=== PATIENT | male | born 1940 | race Caucasian/White ===

== ENCOUNTER → 2016-11-30 | Outpatient (CLI) | payer OTHER ==
--- NOTE | 2016-11-30 16:59 | DX ---
Chest, PA and Lateral History: Cough, possible pneumonia, influenza A, J10.1, J18.9 Comparison: September 02, 2014 Findings: The heart remains enlarged. The pulmonary vascularity is not plethoric. Mildly prominent barrie ng volumes and perihilar bronchial wall thickening are again present and consistent with chronic or r ecurrent airways disease. Patchy density much of which is pleurally based, in the left lower lung may represent pleural scarring from the patient's open heart surgery or a chronic or recurrent pleural e ffusion. It is difficult to exclude underlying infiltrate. Median sternotomy wires and 2 valve replac ements remain in place. Impression: Impossible to exclude left lower lobe pneumonia. If clinically indicated noncontrast CT w ould be helpful. Please see above.
== END ==
LOC: CIMAGING 11:43
PROVIDERS: ATTEND Family Medicine
DX: R91.8 Other nonspecific abnormal finding of lung field (principal); Z95.2 Presence of prosthetic heart valve
CPT/HCPCS: 71020-PO

== ENCOUNTER 2018-04-24 11:23 | Observation (INO) | payer OTHER ==
--- NOTE | 2018-04-23 16:02 | PDHPUP ---
History & Physical Update H&P update statement: This history and physical update is based on an assessment of the patient which was completed after admission or registration (within 24 hours), but prior to the surgery/procedure. H&P update: H&P reviewed & patient examined, no change in patient's condition since H&P completed
[2018-04-24] MEDS ORDERED: LR 1,000 ML IV ONE (12:11)
[2018-04-24] MEDS ORDERED: LIDO/EPI 1% **for epidural** 30 ML SDV ONE (12:26)
[2018-04-24] MEDS ORDERED: BACITRACIN ZINC 14.2 GM OINTTUBE TP ONE (12:26)
[2018-04-24] MEDS ORDERED: OXYMETAZOLINE 30 ML NASAL SPRAY ONE (12:26)
[2018-04-24 12:28] LABS: INR 1.77 (0.83-1.16); PROTIME(PATIENT) 20.7 SEC (12.0-15.0)
[2018-04-24] MEDS ORDERED: DEXAMETHASONE 4 MG/ML VIAL IVP ONE (12:31)
[2018-04-24] MEDS ORDERED: LIDOCAINE 1% 300 MG/30 ML SDV ONE (12:35)
[2018-04-24] MEDS ORDERED: EPINEPHrine 1 MG/ML INJ ONE (12:35)
--- NOTE | 2018-04-24 12:42 | PDANEPAE ---
ANE History of Present Illness bilateral epistaxis s/f bilateral nasal cautery ANE Past Medical History - Cardiovascular History Hx Hypertension: No Hx Arrhythmias: Yes Hx Chest Pain: No Hx Coronary Artery / Peripheral Vascular Disease: Yes Hx CHF / Valvular Disease: Yes Hx Palpitations: Yes Cardiovascular History Comment: PERSISTANT A-FIB, CAD, CHF, CARDIOMYOPATHY, TRICUSPID REGURITATION, AORTIC VALVE REGURITATION, R VENT DYSFUNCTION, EJ FRACTION - 45 - 50% - Pulmonary History Hx COPD: No Hx Asthma/Reactive Airway Disease: No Hx Recent Upper Respiratory Infection: No Hx Oxygen in Use at Home: No Hx Sleep Apnea: No Pulmonary History Comment: PULMONARY HYPERTENSION - Neurologic History Hx Cerebrovascular Accident: Yes Hx Seizures: No Hx Dementia: No Neurologic History Comment: CVA DURING CABG - Endocrine History Hx Diabetes: No Endocrine History Comment: HYPOTHYROID - Renal History Hx Renal Disorders: No - Liver History Hx Hepatic Disorders: No - Neurological & Psychiatric Hx Hx Neurological and Psychiatric Disorders: No - Congenital Disorder History Hx Congenital Disorders: No - GI History Hx Gastrointestinal Disorders: No - Chronic Pain History Chronic Pain: No - Surgical History Prior Surgeries: CABG, 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, HERNIA REPAIR A CHILD, BILAT KNEE REPLACEMENT ANE Review of Systems Review of Systems: - Exercise capacity METS (RN): 3 METS ANE Patient History - Allergies Allergies/Adverse Reactions: No Known Allergies Allergy (Verified 10/02/16 16:56) - Home Medications Home medications: home medication list seen and reviewed Home Medications: Lasix 20 MG (*) 20 mg PO DAILY 04/24/18 [Last Taken 04/23/18] Potassium Chloride 10 mcg PO EVERY OTHER DAY 04/24/18 [Last Taken 04/23/18] Synthroid 100 mcg (*) 100 mcg PO DAILY 04/24/18 [Last Taken 04/23/18] Warfarin Sodium 1 mg pe PO 04/24/18 [Last Taken 04/20/18] Warfarin Sodium [Coumadin 5MG (*)] 7 mg PO 04/24/18 [Last Taken 04/20/18] - NPO status NPO Status: no food or drink >8 hours - Anes Hx Anes Hx: no prior problems - Smoking Hx Smoking Status: Never smoked - Alcohol Use Alcohol Use: Occasionally - Family Anes Hx Family Anes Hx: none Family Hx Anesthesia Complications: na ANE Labs/Vital Signs - Vital Signs Height: 175.26 cm Weight: 74.843 kg ANE Physical Exam - Airway Mallampati Score: Class 2 Mouth exam: normal dental/mouth exam - Pulmonary Pulmonary: no respiratory distress - Cardiovascular Cardiovascular: regular rate and rhythym - ASA Status ASA Status: III ANE Anesthesia Plan Anesthesia Plan: general endotracheal anesthesia
[2018-04-24] MEDS ORDERED: DEXAMETHASONE 4 MG/ML VIAL ONE ×2 (12:53)
[2018-04-24] MEDS ORDERED: LIDOCAINE 2% 100 MG/5 ML SYR ONE (12:53)
[2018-04-24] MEDS ORDERED: REMIFENTANIL HCL 1 MG VIAL ONE (12:53)
[2018-04-24] MEDS ORDERED: PROPOFOL/EMULSION 500 MG/50 ML BOTTLE IV ONE (12:53)
[2018-04-24] MEDS ORDERED: fentaNYL 100 MCG/2 ML INJ ONE (12:53)
[2018-04-24] MEDS ORDERED: ONDANSETRON 4 MG/2 ML VIAL ONE (12:53)
[2018-04-24] MEDS ORDERED: PHENYLEPHRINE HCL 100 MCG/ML SYR ONE (12:58)
[2018-04-24] MEDS ORDERED: ONDANSETRON 4 MG/2 ML VIAL IVP PRN ×2 (13:46→14:07)
[2018-04-24] MEDS ORDERED: OXYCODONE/APAP 5/325 TAB PO PRN (13:46)
--- NOTE | 2018-04-24 13:46 | POSTOPPROG ---
Post Op Note Date of Operation: 04/24/18 Surgeon: Cassidy Keen Anesthesiologist: Corby Anesthesia: GET(General Endotracheal) Pre-op Diagnosis: recurrent left sided epistaxis Post-op Diagnosis: same Procedure: EUA with endoscopic cauterizatiuon of nasal bleeder, and insertion of left Inf/Abcess present in the surg proc area at time of surgery?: No Depth: Superfical (Skin SQ) EBL: 50-100 Total fluids administered: 800 Complications: none Specimen(s): none
[2018-04-24] MEDS ORDERED: D5W 1/2 NS W/ 20 KCl/L 1,000 ML IV SCH (14:00)
[2018-04-24] MEDS ORDERED: LR 500 ML IV PRN (14:07)
[2018-04-24] MEDS ORDERED: HYDROCODONE/APAP 5/325 TAB PO PRN (14:07)
[2018-04-24] MEDS ORDERED: fentaNYL 100 MCG/2 ML INJ IVP PRN (14:07)
[2018-04-24] MEDS ORDERED: oxyCODONE IR 5 MG TAB PO PRN (14:07)
[2018-04-24] MEDS ORDERED: NALOXONE HCL 0.4 MG/ML INJ IVP PRN (14:07)
[2018-04-24] MEDS ORDERED: PROMETHAZINE HCL 25 MG/ML INJ IVP PRN (14:07)
[2018-04-24] MEDS ORDERED: DEXAMETHASONE 4 MG/ML VIAL IVP PRN (14:07)
[2018-04-24] MEDS ORDERED: ALBUTEROL 3 ML DEYVIAL IH PRN (14:07)
[2018-04-24] MEDS ORDERED: METOCLOPRAMIDE 10 MG/2 ML VIAL IVP PRN (14:07)
[2018-04-24] MEDS ORDERED: ACETAMINOPHEN 500 MG TAB PO PRN (14:07)
[2018-04-24] MEDS ORDERED: PHENYLEPHRINE HCL 100 MCG/ML SYR IVP PRN (14:07)
[2018-04-24] MEDS ORDERED: MEPERIDINE 25 MG/0.5 ML AMP IVP PRN (14:07)
[2018-04-24] MEDS ORDERED: LABETALOL HCL 5 MG/ML 20 ML MDV ONE (14:18)
[2018-04-24] MEDS ORDERED: LABETALOL HCL 5 MG/ML 20 ML MDV IVP PRN (14:19)
--- NOTE | 2018-04-24 14:27 | GOP ---
[f rep st] OPERATIVE REPORT DATE OF OPERATION: 04/24/2018 SURGEON: Tim Keen MD ANESTHESIA: General endotracheal. PREOPERATIVE DIAGNOSIS: Recurrent epistaxis. POSTOPERATIVE DIAGNOSIS: Recurrent epistaxis. PROCEDURE PERFORMED: Examination under anesthesia with nasal endoscopic control of nasal bleeding an d placement of left nasal packing. FINDINGS: No gross bleeding seen, oozing from the septal deformity low and left floor of nose extens ively treated with bipolar electrocautery. In addition, left sidewall of the nose thoroughly cauteri zed as well as Surgicel packing then used to fill the left nasal airway and provide firm pressure ove rlying the bleeding site. ESTIMATED BLOOD LOSS: 10 mL. DESCRIPTION OF PROCEDURE: The patient was placed on the operative table in supine position. After i nduction of adequate general endotracheal anesthesia, sterile draping was performed. Sterile eye pad s and head drape were placed. The patient's previously placed balloon packs were removed from each s mckinley of the nose. At this point, pledgets soaked in Afrin nasal spray were inserted into the right an d left side of the nose. The nose was then examined. No area of bleeding was noted. It was noted t he patient had significant angulation of his nasal septum on the left. Endoscopic visualization of t he right nasal airway was performed. No evidence of fresh or old blood was noted. Old blood was not ed to be present in the posterior pharynx. The left side of the nose was then thoroughly examined. Oozing was noted along the septal deformity along the floor of the nose. The septal deformity almost abutted the sidewall of the nose. The area surrounding the septal deformity was noted to have press ure using suctioning and the middle meatus was unremarkable. At this point cauterization of the enti re septal spur on the left was performed using the bipolar electrocautery. The area was extensively cauterized. The nasal sidewall was then cauterized so that the sphenoethmoid artery would be cauteri zed as well. At this point, Surgicel was cut into strips and inserted firmly and packed firmly in th e left side of the nose. Once this was completed, the procedure was terminated. The patient was preet kened and transferred to the postanesthesia recovery area in stable condition. FLUID REPLACEMENT: 1000 mL. COMPLICATIONS: None. /[id number]/MODL
[2018-04-24] MEDS ORDERED: ACETAMINOPHEN 325 MG TAB PO PRN (16:33)
--- NOTE | 2018-04-24 16:44 | SOAPPROG ---
SOAP Progress Note Assessment/Plan: Assessment: 77 year old male s/p endoscopic control of epistaxis. No bleeding. Doing well. Tylenol ordered. Regular diet started. - Will discharge tomorrow 04/24/18 16:43 Subjective: S/p endoscopic evaluation and control of epistaxis. Doing well. Mild pain. No bleeding. Objective: Vital Signs Temp Pulse Resp BP Pulse Ox 36.9 C 76 18 159/80 H 97 04/24/18 15:18 04/24/18 15:18 04/24/18 15:18 04/24/18 15:18 04/24/18 15:18 04/23/18 04/24/18 04/25/18 05:59 05:59 05:59 Intake Total 850 Balance 850 PT 20.7 SEC (12.0-15.0) H 04/24/18 11:50 INR 1.77 (0.83-1.16) H 04/24/18 11:50 No bleeding ICD10 Worksheet Patient Problems: Problems Problem Status Onset CHF (congestive heart failure) Acute Chronic Diseae Mgmt/Transitional Care Acute Stroke Acute
[2018-04-25 09:01] VITALS: BP 112/56
--- NOTE | 2018-04-25 09:37 | SOAPPROG ---
SOAP Progress Note Assessment/Plan: Assessment: Plan: Subjective: patient with minimal pain AVSS packing in place left nasal airway no bleeding or blood in pharynx on pharyngeal exam will d/c pt this am fu mext monday DX s/p endoscopic cautery and packing of right nasal hemorrhage Objective: Vital Signs Temp Pulse Resp BP Pulse Ox 36.7 C 65 16 112/56 L 92 04/25/18 08:00 04/25/18 08:00 04/25/18 08:00 04/25/18 08:00 04/25/18 08:00 04/24/18 04/25/18 04/26/18 05:59 05:59 05:59 Intake Total 1950 Balance 1950 PT 20.7 SEC (12.0-15.0) H 04/24/18 11:50 INR 1.77 (0.83-1.16) H 04/24/18 11:50 ICD10 Worksheet Patient Problems: Problems Problem Status Onset CHF (congestive heart failure) Acute Chronic Diseae Mgmt/Transitional Care Acute Stroke Acute
--- NOTE | 2018-05-01 14:16 | GPROG ---
[f rep st] PROGRESS NOTE POST-ANESTHESIA NOTE DATE OF SERVICE: 04/24/2018 The patient was visited in the recovery room on 04/24/2018 at about 3:00 in the afternoon. He was re covering nicely from the bilateral nasal cauterization for chronic, recurrent nasal bleeding. He is hemodynamically stable. He was requiring no oxygen. He has not had any significant pain, nausea, vo miting, or other anesthetic complications, and he was being transferred to the floor for further care . /[id number]/MODL
== END 2018-04-25 10:51 | disposition home or self-care (01) ==
LOC: FSGY 11:23 → F3E 13:46
PROVIDERS: ADMIT Otolaryngology; ATTEND Otolaryngology
PROC: 095M8ZZ Destruction of Nasal Septum, Via Natural or Artificial Opening Endoscopic (ICD-10-PCS; principal; 2018-04-24 12:45)
DX: R04.0 Epistaxis (principal); I48.91 Unspecified atrial fibrillation; I25.10 Atherosclerotic heart disease of native coronary artery without angina pectoris; I50.9 Heart failure, unspecified; I42.9 Cardiomyopathy, unspecified; I08.2 Rheumatic disorders of both aortic and tricuspid valves; I27.20 Pulmonary hypertension, unspecified; E03.9 Hypothyroidism, unspecified; Z79.01 Long term (current) use of anticoagulants; Z86.73 Personal history of transient ischemic attack (TIA), and cerebral infarction without residual deficits; Z95.1 Presence of aortocoronary bypass graft; Z95.4 Presence of other heart-valve replacement; Z96.653 Presence of artificial knee joint, bilateral
CPT/HCPCS: 31238; G0378; J0171; J1100; J2001; J2370; J2405; J2704; J3010